=== PATIENT | female | born 1940 | race Caucasian/White ===

== ENCOUNTER 2019-06-08 00:12 | Inpatient (IN) ==
--- NOTE | 2019-06-08 00:46 | ERNOTE ---
Lower Extremity HPI - General Lower Extremities Pain: hip: left - hip fracture Time Seen by Provider: 06/08/19 00:45 Source: family, other - Dr. Newby from [facility] Exam Limitations: no limitations - Immun/Allergies/Home Medications Immunizations: IMMUNIZATION HX Immunizations Up to Date Yes History of Influenza Vaccine More Information Required Hx Pneumococcal Vaccination More Information Required Allergies/Adverse Reactions: Allergies Allergy/AdvReac Type Severity Reaction Status Date / Time No Known Allergies Allergy Unverified 06/08/19 01:26 Home Medications: HOME MEDICATIONS Acetaminophen [Tylenol] 650 mg PO Q4H PRN 06/08/19 [Last Taken Unknown] LORazepam [Ativan] 1 mg PO BID 06/08/19 [Last Taken Unknown] Meloxicam [Mobic] 15 mg PO DAILY 06/08/19 [Last Taken Unknown] Rosuvastatin Calcium [Crestor] 10 mg PO DAILY 06/08/19 [Last Taken Unknown] Sertraline HCl [Zoloft] 50 mg PO DAILY 06/08/19 [Last Taken Unknown] - History of Present Illness Narrative: Patient transferred here from [facility]. Patient fell early in the morning and was unable to get up throughout most the day. In the late evening her daughter sent somebody over to check on her and found that she had fallen and could not get up. She was taken by ambulance to [facility] where they found she has a left hip fracture and in rhabdomyolysis. They gave her 2 L of normal saline between the ER time and ambulance ride here. Patient is alert and oriented. Occurred: this morning Location of Incident: home Method of Injury: Reports: fell Reason for Fall: Reports: slipped Loss of Consciousness: Reports: no loss of consciousness Review of Systems - Review of Systems Constitutional: Absent: recent illness, fever Respiratory: Absent: shortness of breath Cardiology: Absent: chest pain Gastrointestinal/Abdominal: Absent: nausea, vomiting Genitourinary: Present: frequency - and incontinence Musculoskeletal: Present: joint pain - left hip Skin: Present: change in color - abrasions elbows and knees Neurological: Absent: numbness, tingling Hematologic/Lymphatic: Present: easy bruising. Absent: easy bleeding Medical History (Updated 06/08/19 @ 02:22 by Luís Leon DO) Anxiety Arthritis COPD (chronic obstructive pulmonary disease) Depression Hypercholesterolemia Macular degeneration Surgical History: Surgical History (Updated 06/08/19 @ 01:24 by Radha Gray RN) H/O bilateral oophorectomy Hx of cholecystectomy Social History: (Last Reviewed 06/08/19 @ 02:17 by Luís Leon DO) Tobacco: Smoking Status: Current every day smoker Physical Exam - Physical Exam General Appearance: Present: wd/wn, alert, no apparent distress Head Exam: Present: normal inspection, no evidence of injury Eye Exam: Normal inspection: bilateral, PERRL: bilateral, EOMI: bilateral Ears, Nose, Throat: Present: normal ENT inspection Neck: Present: normal inspection, nontender, supple, full range of motion Respiratory: Present: no respiratory distress, no accessory muscle use, chest nontender, lungs clear Cardiovascular/Chest: Present: regular rate, rhythm, systolic murmur - 2/6 Gastrointestinal/Abdominal: Present: normal bowel sounds, nontender, nondistended, soft Extremity Exam: Present: normal except - - Left hip, decreased range of motion, bony tenderness Neurological Exam: Present: alert, oriented, normal mood/affect, no motor/sensory deficits Skin Exam: Present: normal color, warm/dry Progress - Results and Orders Patient's Lab Results:: I have reviewed the patient's lab results. Results and Orders: Labs from [facility] show CPK of 2800+, UA shows 100 protein small amount of bilirubin and some white blood cells. - Vital Signs Patient's Vital Signs:: I have reviewed the patient's vital signs. - X-Ray X-Ray #1 X-Ray: hip X-ray Comments: X-rays from [facility] show a left femoral neck fracture. Right hip, knees and elbows bilateral show no other fractures. - Progress/Reassessment Progress Note-Subjective: 06/08/19 02:[address] Martinez and she agrees to accept the patient for admission. She asked for IV fluids to be reduced from the 200 we had running to 150 mils per hour Departure Clinical Impression: Hip fracture, left Qualifiers: Encounter type: initial encounter Fracture type: closed Qualified Code(s): S72.002A - Fracture of unspecified part of neck of left femur, initial encounter for closed fracture Rhabdomyolysis Qualifiers: Rhabdomyolysis type: traumatic Encounter type: initial encounter Qualified Code(s): T79.6XXA - Traumatic ischemia of muscle, initial encounter - Departure Disposition: Short Term Hospital Inpatient Condition: Good
[2019-06-08] MEDS ORDERED: NORMAL SALINE 1,000 ML IV ONE (01:04)
[2019-06-08] MEDS ORDERED: ceFAZolin SODIUM 1 GM VIAL IV PRN (06:00)
[2019-06-08] MEDS ORDERED: ROPIVACAINE HCL/PF 100 MG, EPINEPHrine 0.2 MG, KETOROLAC TROMETHAMINE 30 MG in NORMAL S... IJ PRN (06:00)
[2019-06-08] MEDS ORDERED: TRANEXAMIC ACID 1,000 MG in NORMAL SALINE 100 ML IV PRN (06:00)
[2019-06-08] MEDS ORDERED: ACETAMINOPHEN 325 MG TABLET PO PRN ×2 (08:05→08:10)
[2019-06-08] MEDS ORDERED: POLYVINYL ALCOHOL 150 DROP BTL EACHEYE PRN (08:12)
[2019-06-08 08:27] LABS: Hematocrit 37.4 % (37.0-47.0); Hemoglobin 12.6 gm/dL (12.5-16.0); Mean Cell Volume 94.9 fl (78-100); Mean Corpuscular Hgb Conc 33.7 g/dl (32-36); Platelet Count 129 K/mm3 (150-450); Red Blood Count 3.94 M/mm3 (4.2-5.4); White Blood Count 8.4 K/mm3 (4.0-10.5)
[2019-06-08 08:34] LABS: Prothrombin Time (Patient) 9.8 Seconds (9.1-10.7); Total Cells Counted 100
[2019-06-08 08:36] LABS: INR 0.99 INR (0.92-1.08)
[2019-06-08] MEDS ORDERED: chlordiazePOXIDE HCL 25 MG CAPSULE PO PRN (08:43)
[2019-06-08 08:44] LABS: Urine Bilirubin Negative (NEGATIVE); Urine Blood 50 /ul (NEGATIVE); Urine Ketone 5 mg/dL (NEGATIVE); Urine Nitrite Negative (NEGATIVE); Urine Protein 30 mg/dL (NEGATIVE); Urine Urobilinogen Normal (NORMAL)
[2019-06-08 08:48] LABS: Albumin * 2.7 gm/dl (3.4-5.0); Anion Gap 11.6 mmol/L (6.8-13.8); BUN/Creatinine Ratio 30.6 (9.0-21.6); Bilirubin, Total 0.7 mg/dL (0.0-1.1); Ca. Corrected For Albumin 8.6 mg/dL (8.4-10.2); Calcium * 7.9 mg/dL (7.9-10.9); Carbon Dioxide 25.9 mmol/L (24-32.6); Potassium 3.5 mmol/L (3.4-4.6); Total Protein 5.7 gm/dL (6.2-8.2)
[2019-06-08 08:50] LABS: Band 1 % (0-2.0); Lymphocyte 11 % (20-51); Monocyte 7 % (0-9); Neutrophil 81 % (42-75); Neutrophil # 6.8 K/mm3 (1.3-6.0); Platelet Estimate Normal (NORMAL); RBC Morphology Normal (NORMAL)
[2019-06-08 08:56] LABS: Urine Appearance Clear (CLEAR); Urine Bacteria TRACE; Urine Color Yellow
[2019-06-08] MEDS ORDERED: MELOXICAM 15 MG TABLET PO SCH (09:00)
[2019-06-08] MEDS: FAMOTIDINE 20 MG in DEXTROSE 5 % IN WATER 100 ML IV SCH ×4 (09:03→20:35)
[2019-06-08] MEDS: amLODIPine BESYLATE 5 MG TABLET PO SCH (09:04)
[2019-06-08] MEDS: NICOTINE 14 MG PATC TD SCH (09:04)
[2019-06-08] MEDS ORDERED: MORPHINE SULFATE 2 MG/ML DISP.SYRIN IV PRN ×2 (09:17→16:46)
--- NOTE | 2019-06-08 09:31 | HP ---
Chief Complaint - Chief Complaint Date of Service: 06/08/19 Time of Service: 09:02 Chief Complaint: I fell and have left hip pain History of Present Illness: 79-year-old female with past medical history of hypercholesterolemia, COPD, macular degeneration, osteoarthritis, anxiety disorder, depression, and alcoholism was evaluated in our ER due to left sided hip pain secondary to a fall that occurred yesterday in her home when she slipped and fell onto her left side. Patient has an extensive history of cigarette smoking as well as alcohol abuse and drinks up to 5 bourbons per day. She reports the last alcoholic drink being the evening before the fall but is unable to recall if being drunk caused her to fall. Patient lives alone and was not accompanied during the event so there were no witnesses to the fall and patient was immobile laying on the floor and unable to get up for multiple hours. When her daughter was unable to reach her mother for several hours she became alarmed enough to send the EMT to the home, who discovered the patient on the floor and took her to [facility] in [place]. ER labs conducted at that facility demonstrated significant rhabdomyolysis likely secondary to the multiple hours of being immobile on the floor and moderate renal injury. Patient is not a regular here at facility so we are unable to determine her baseline GFR or kidney function. She was also discovered to have elevated liver enzymes which is most likely related to her excessive drinking and multiple years of alcohol abuse. Patient denied any head injuries and bedside evaluation did not demonstrate any injuries to her head or cervical area. Medical History (Updated 06/08/19 @ 09:31 by Mckenna Martinez MD) Anxiety Arthritis COPD (chronic obstructive pulmonary disease) Depression Hypercholesterolemia Macular degeneration Surgical History: Surgical History (Updated 06/08/19 @ 01:24 by Radha Gray RN) H/O bilateral oophorectomy Hx of cholecystectomy Social History: (Last Reviewed 06/08/19 @ 03:15 by Shama Alfaro RN) Tobacco: Smoking Status: Current every day smoker Peds Patient Hx - Developmental: No Pertinent Hx Peds Patient Hx - Medical: No Pertinent Hx Peds Patient Hx - Cardiac/Respiratory: No Pertinent Hx Peds Patient Hx - Surgical: No Surgical History Patient History - Cancer: No Hx of Cancer Review Of Systems (GEN) - Review of Systems Generalized/Overall Review: Present: No Symptoms Reported EENTM: Present: No Symptoms Reported Respiratory: Present: No Symptoms Reported Cardiac: Present: No Symptoms Reported Abdominal: Present: No Symptoms Reported Genitourinary: Present: No Symptoms Reported Musculoskeletal: Present: Joint Pain - Left hip pain. Neurological: Present: No Symptoms Reported Skin: Present: No Symptoms Reported Endocrine: Present: No Symptoms Reported Immunizations: IMMUNIZATION HX Immunizations Up to Date Yes History of Influenza Vaccine More Information Required Hx Pneumococcal Vaccination More Information Required Allergies/Adverse Reactions: Allergies Allergy/AdvReac Type Severity Reaction Status Date / Time No Known Allergies Allergy Unverified 06/08/19 01:26 Home Medications: HOME MEDICATIONS Acetaminophen [Tylenol] 650 mg PO Q4H PRN 06/08/19 [Last Taken Unknown] LORazepam [Ativan] 1 mg PO BID 06/08/19 [Last Taken Unknown] Meloxicam [Mobic] 15 mg PO DAILY 06/08/19 [Last Taken Unknown] Rosuvastatin Calcium [Crestor] 10 mg PO DAILY 06/08/19 [Last Taken Unknown] Sertraline HCl [Zoloft] 50 mg PO DAILY 06/08/19 [Last Taken Unknown] Exam - Exam Vital Signs: Vital Signs - Last Taken Temp 36.8 C 06/08/19 06:27 Pulse 76 06/08/19 06:27 Resp 20 06/08/19 06:27 BP 157/85 H 06/08/19 06:27 Pulse Ox 97 06/08/19 06:27 Constitutional: Present: Alert, Oriented x3, Cooperative, Well developed, Well nourished, No distress ENT Exam: Present: normal ENT inspection, hearing grossly normal, pharynx normal, TMs normal Eye Exam: bilateral eye: normal inspection, PERRL, EOMI Neck: Present: non-tender, full range of motion, supple, normal inspection, trachea midline Back Exam: Present: normal inspection, no CVA tenderness, no vertebral tenderness Breasts: Present: Exam deferred Respiratory: Present: chest non-tender, lungs clear, normal breath sounds, no respiratory distress, no accessory muscle use Cardiovascular/Chest: Present: normal peripheral pulses, regular rate, rhythm, no chest tenderness, no edema, no gallop, no JVD, no murmur, no rub Peripheral Pulses: carotid (R): 3+, carotid (L): 3+, femoral (R): 3+, femoral (L): 3+, dorsalis-pedis (R): 3+, dorsalis-pedis (L): 3+ Abdomen: Present: Normal bowel sounds, soft, nontender, nondistended, no rebound tenderness, no hepatospenomegaly, no masses /Rectal: Present: Exam deferred Extremity: Present: no pedal edema, no calf tenderness, normal capillary refill, leg pain, other - Left lower extremity shortened and externally rotated, there are multiple hematomas on both knees Skin Exam: Present: normal color, warm/dry, no cyanosis Lymphatic: Present: no adenopathy Neurologic: Present: 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 as tested, normal cerebellar test, no motor/sensory deficits, alert, normal mood/affect, oriented x 3 Appearance: Present: appropriate appearance Eye contact: Present: cooperative, good eye contact, normal speech Thoughts: Present: normal thought pattern, no apparent hallucination Diagnostic Studies: Abnormal Lab Results 06/08/19 06/08/19 06/08/19 Range/Units 08:20 08:20 08:20 RBC 3.94 L (4.2-5.4) M/mm3 MCH 32.0 H (27-31) pg Plt Count 129 L (150-450) K/mm3 Neutrophils % (Manual) 81 H (42-75) % Lymphocytes % (Manual) 11 L (20-51) % Neutrophils # (Manual) 6.8 H (1.3-6.0) K/mm3 Lymphocytes # (Manual) 0.9 L (1.5-3.5) k/mm3 Chloride 108 H (97-106) mmol/L BUN/Creatinine Ratio 30.6 H (9.0-21.6) Random Glucose 116 H (70-110) mg/dL AST 70 H (0-48) U/L Creatine Kinase 1201 H (0-259) U/L Total Protein 5.7 L (6.2-8.2) gm/dL Albumin 2.7 L (3.4-5.0) gm/dl Urine Protein 30 H (NEGATIVE) mg/dL Urine Blood 50 H (NEGATIVE) /ul Urine RBC 10-25 H (0-5) /hpf Urine WBC 5-10 H (0-5) /hpf Laboratory Results WBC 8.4 K/mm3 (4.0-10.5) 06/08/19 08:20 RBC 3.94 M/mm3 (4.2-5.4) L 06/08/19 08:20 Hgb 12.6 gm/dL (12.5-16.0) 06/08/19 08:20 Hct 37.4 % (37.0-47.0) 06/08/19 08:20 MCV 94.9 fl (78-100) 06/08/19 08:20 MCH 32.0 pg (27-31) H 06/08/19 08:20 MCHC 33.7 g/dl (32-36) 06/08/19 08:20 RDW 14.0 % (11.5-14.0) 06/08/19 08:20 Plt Count 129 K/mm3 (150-450) L 06/08/19 08:20 81 % (42-75) H 06/08/19 08:20 Band Neuts % (Manual) 1 % (0-2.0) 06/08/19 08:20 11 % (20-51) L 06/08/19 08:20 7 % (0-9) 06/08/19 08:20 6.8 K/mm3 (1.3-6.0) H 06/08/19 08:20 0.9 k/mm3 (1.5-3.5) L 06/08/19 08:20 0.6 k/mm3 (0.0-1.0) 06/08/19 08:20 Normal (NORMAL) 06/08/19 08:20 RBC Morphology Normal (NORMAL) 06/08/19 08:20 PT 9.8 Seconds (9.1-10.7) 06/08/19 08:20 INR (Anticoag Therapy) 0.99 INR (0.92-1.08) 06/08/19 08:20 Sodium 142 mmol/L (132-142) 06/08/19 08:20 142 mmol/L (130-142) 06/08/19 08:20 Potassium 3.5 mmol/L (3.4-4.6) 06/08/19 08:20 Chloride 108 mmol/L (97-106) H 06/08/19 08:20 Carbon Dioxide 25.9 mmol/L (24-32.6) 06/08/19 08:20 11.6 mmol/L (6.8-13.8) 06/08/19 08:20 BUN 22 mg/dL (3-23) 06/08/19 08:20 0.72 mg/dL (0.4-1.4) 06/08/19 08:20 Est GFR (Non-Af Amer) 83 mL/min (60-130) 06/08/19 08:20 30.6 (9.0-21.6) H 06/08/19 08:20 116 mg/dL (70-110) H 06/08/19 08:20 Calcium 7.9 mg/dL (7.9-10.9) 06/08/19 08:20 Calcium Adj for Albumin 8.6 mg/dL (8.4-10.2) 06/08/19 08:20 0.7 mg/dL (0.0-1.1) 06/08/19 08:20 AST 70 U/L (0-48) H 06/08/19 08:20 ALT 47 U/L (19-67) 06/08/19 08:20 54 U/L (50-170) 06/08/19 08:20 1201 U/L (0-259) H 06/08/19 08:20 5.7 gm/dL (6.2-8.2) L 06/08/19 08:20 2.7 gm/dl (3.4-5.0) L 06/08/19 08:20 Yellow 06/08/19 08:20 Clear (CLEAR) 06/08/19 08:20 6.0 pH (5.0-7.0) 06/08/19 08:20 Ur Specific [place] 1.020 SP.GR. (1.005-1.010) 06/08/19 08:20 30 mg/dL (NEGATIVE) H 06/08/19 08:20 Negative mg/dL (NEGATIVE) 06/08/19 08:20 5 mg/dL (NEGATIVE) 06/08/19 08:20 50 /ul (NEGATIVE) H 06/08/19 08:20 Negative (NEGATIVE) 06/08/19 08:20 Negative mg/dl (NEGATIVE) 06/08/19 08:20 Prot Sulfosalicylic Acd 1+ mg/dL (0) 06/08/19 08:20 Normal EU/dl (NORMAL) 06/08/19 08:20 Ur Leukocyte Esterase Negative /ul (NEGATIVE) 06/08/19 08:20 10-25 /hpf (0-5) H 06/08/19 08:20 5-10 /hpf (0-5) H 06/08/19 08:20 Ur Epithelial Cells None seen /hpf (0-5) 06/08/19 08:20 Trace (NONE) 06/08/19 08:20 Assessment/Plan - Narrative Narrative: Patient was evaluated and medical chart was reviewed and decision to admit to inpatient for management of a left femoral neck fracture was made. Orthopedic s samantha was consulted and accepted the case and plans on possible surgical intervention to repair the left femoral neck fracture. Follow-up labs were ordered to reevaluate for acute rhabdomyolysis, moderate dehydration, acute kidney injury, and electrolyte imbalance. Results demonstrate marked improvement of kidney function with a GFR within normal range, there are no electrolyte imbalances, coagulation factors all within normal range, and elevated liver enzymes have also improved, urinalysis is negative for infection but demonstrate presence of protein and white blood cells likely secondary to dehydration, creatinine kinase levels have also decreased remarkably after IV hydration. We will continue IV hydration to treat rhabdomyolysis and to optimize renal function. Patient's daily NSAID have been placed on hold and pain medications were ordered. Preop orders chest x-ray, EKG, and anticoagulation factors were placed, we will follow-up with results. Precautions for alcohol withdrawals were taken, benzodiazepines for seizure prophylaxis, multivitamin with folic acid, and thiamine were ordered to protect patient from consequences of her alcoholism during hospital stay. Nicotine patches were also ordered to treat nicotine withdrawal. Chest x-ray is negative for any acute findings and only demonstrate chronic disease specifically COPD which patient has a history of. Given these findings, patient has been cleared for surgical intervention by the orthopedic surgeon possibly this afternoon. - Assessment/Plan (1) Rhabdomyolysis Problem: Acute Qualifiers: Rhabdomyolysis type: traumatic Encounter type: initial encounter Qualified Code(s): T79.6XXA - Traumatic ischemia of muscle, initial encounter (2) Moderate dehydration Problem: Acute (3) JOSE L (acute kidney injury) Problem: Acute (4) Alcohol withdrawal Problem: Acute (5) Alcoholism /alcohol abuse Problem: Chronic (6) Current every day smoker Problem: Chronic (7) Nicotine dependence Problem: Chronic (8) Fracture of femoral neck, left Problem: Acute
[2019-06-08] MEDS: LORazepam 1 MG TABLET PO SCH ×2 (09:56→20:42)
[2019-06-08] MEDS: MULTIVITAMIN/IRON/FOLIC ACID 1 TAB TABLET PO SCH (09:56)
[2019-06-08] MEDS: SERTRALINE HCL 50 MG TABLET PO SCH (09:57)
[2019-06-08] MEDS: THIAMINE HCL 100 MG TABLET PO SCH (09:57)
[2019-06-08] MEDS: DOCUSATE SODIUM 100 MG CAPSULE PO SCH (09:57)
[2019-06-08] MEDS: NORMAL SALINE 2,000 ML IV ONE ×3 (09:58→16:30)
--- NOTE | 2019-06-08 11:30 | ANES ---
Anesthesia Pre Procedure Eval Vitals/Labs: Last Vital Signs Temp 36.8 C 06/08/19 10:00 Pulse 73 06/08/19 10:00 Resp 20 06/08/19 10:00 BP 164/86 H 06/08/19 10:00 Pulse Ox 100 06/08/19 10:00 HOME MEDICATIONS Acetaminophen [Tylenol] 650 mg PO Q4H PRN 06/08/19 [Last Taken Unknown] LORazepam [Ativan] 1 mg PO BID 06/08/19 [Last Taken Unknown] Meloxicam [Mobic] 15 mg PO DAILY 06/08/19 [Last Taken Unknown] Rosuvastatin Calcium [Crestor] 10 mg PO DAILY 06/08/19 [Last Taken Unknown] Sertraline HCl [Zoloft] 50 mg PO DAILY 06/08/19 [Last Taken Unknown] Allergies/Adverse Reactions: Allergies Allergy/AdvReac Type Severity Reaction Status Date / Time No Known Allergies Allergy Unverified 06/08/19 01:26 - Planned Procedure Planned Procedure: LT HIP FX RABDOMYOLYSIS Medication List Reviewed:: Yes Allergies Verified: Yes Medical History (Updated 06/08/19 @ 11:29 by Roman Multani CRNA) Anxiety Arthritis COPD (chronic obstructive pulmonary disease) Depression Hypercholesterolemia Macular degeneration Thrombocytopenia Surgical History (Updated 06/08/19 @ 01:24 by Radha Gray RN) H/O bilateral oophorectomy Hx of cholecystectomy - Family Anesthesia History Family History:: no untoward family reactions to anesthesia, no familial bleeding tendencies, no family history of clotting disorders, no family history of premature - Airway/Neck/Teeth Within Normal Limits:: Yes Teeth Condition: intact Mallampatti Score: 2 Thyromental (T-M) distance: > 6 cm Mandibulo Hyoid distance: > 3 cm - Respiratory Respiratory Physical: decreased breath sounds Smoking Status: Current every day smoker Discussed smoking cessation including day of surgery: Yes Sleep Apnea currently treated: No Sleep Apnea by current assessment: No Discussed Risks/Treatment of ROSEMARY: No - Cardiovascular Tolerate Activity: Fair Heart Sounds: S1 & S2, Regular - Anesthesia Assessment and Plan ASA Class: PS, III Anesthesia Type Plan: General ET
--- NOTE | 2019-06-08 13:42 | CONS ---
[facility] - [facility] Date of Service: 06/08/19 Narrative: Patient was brought to the ER after a fall yesterday on 06/07/2019. X-rays were performed due to patient's significant left hip pain they revealed a displaced left femur neck fracture. Patient was admitted to the hospital for further treatment of this injury. Note patient has an extensive medical history and was seen by a medicine provider. Today patient is resting comfortably in bed. She notes her pain is well controlled. She states she wishes to proceed with surgical intervention. Patient notes she has significant left hip pain that is worse with movement better with rest. Source: patient - History of Present Illness Allergies/Adverse Reactions: Allergies No Known Allergies Allergy (Unverified 06/08/19 01:26) Home Medications: Home Medications Medication Instructions Recorded Last Taken Acetaminophen [Tylenol] 650 mg PO Q4H PRN 06/08/19 Unknown LORazepam [Ativan] 1 mg PO BID 06/08/19 Unknown Meloxicam [Mobic] 15 mg PO DAILY 06/08/19 Unknown Rosuvastatin Calcium [Crestor] 10 mg PO DAILY 06/08/19 Unknown Sertraline HCl [Zoloft] 50 mg PO DAILY 06/08/19 Unknown Medications - Medications Current Medications: Current Medications Amlodipine Besylate (Norvasc) 5 mg PO DAILY COUNT INCLUDES THE [facility] Stop: 07/08/19 09:01 Last Admin: 06/08/19 09:04 Dose: 5 mg Documented by: Artificial Tears (Artificial Tears) 1 drop EACHEYE Q1H PRN PRN Reason: Dry Eye(s) Stop: 07/08/19 08:13 Last Admin: 06/08/19 09:06 Dose: 1 drop Documented by: Docusate Sodium (Colace) 100 mg PO DAILY COUNT INCLUDES THE [facility] Stop: 07/08/19 09:01 Last Admin: 06/08/19 09:57 Dose: Not Given Documented by: Famotidine 20 mg/ Dextrose/ (Water) 102 mls @ 400 mls/hr IV Q12H COUNT INCLUDES THE [facility] Stop: 07/08/19 08:16 Last Admin: 06/08/19 09:03 Dose: 400 mls/hr Documented by: Sodium Chloride (Sodium Chloride 0.9%) 2,000 mls @ 200 mls/hr IV .Q10H ONE Stop: 06/08/19 19:12 Last Admin: 06/08/19 09:58 Dose: 200 mls/hr Documented by: Lorazepam (Ativan) 1 mg PO BID COUNT INCLUDES THE [facility] Stop: 07/08/19 09:01 Last Admin: 06/08/19 09:56 Dose: Not Given Documented by: Morphine Sulfate (Morphine Sulfate) 2 mg IV Q2H PRN PRN Reason: Severe Pain (pain scale 7-10) Stop: 07/08/19 09:18 Last Admin: 06/08/19 10:05 Dose: 2 mg Documented by: Multivitamins/Minerals (Certagen) 1 tab PO DAILY COUNT INCLUDES THE [facility] Stop: 07/08/19 09:01 Last Admin: 06/08/19 09:56 Dose: Not Given Documented by: Nicotine (Nicoderm) 14 mg TD Q24H COUNT INCLUDES THE [facility] Stop: 07/08/19 08:31 Last Admin: 06/08/19 09:04 Dose: 14 mg Documented by: Sertraline HCl (Zoloft) 50 mg PO DAILY COUNT INCLUDES THE [facility] Stop: 07/08/19 09:01 Last Admin: 06/08/19 09:57 Dose: Not Given Documented by: Thiamine HCl (Vitamin B-1) 100 mg PO DAILY COUNT INCLUDES THE [facility] Stop: 07/08/19 09:01 Last Admin: 06/08/19 09:57 Dose: Not Given Documented by: Physical Examination - Exam Vital Signs: Vital Signs - Last Taken Temp 36.8 C 06/08/19 10:00 Pulse 73 06/08/19 10:00 Resp 20 06/08/19 10:00 BP 164/86 H 06/08/19 10:00 Pulse Ox 100 06/08/19 10:00 O2 Oxygen Delivery Method Room Air Constitutional: Present: Alert, Cooperative, No distress Respiratory: Present: no respiratory distress Extremity: Present: other - LLE--> sensation intact light touch, distal capillary refill brisk, no obvious wounds, leg is slightly externally rotated, 5/5 plantar flexion dorsiflexion of the foot, diffuse tenderness about the left hip Eye contact: Present: cooperative - Results and Findings: Lab/Microbiology results last 24 hrs: Abnormal/Pending Laboratory Last 24 HRS 06/08/19 06/08/19 06/08/19 08:20 08:20 08:20 RBC 3.94 L MCH 32.0 H Plt Count 129 L Neutrophils % (Manual) 81 H Lymphocytes % (Manual) 11 L Neutrophils # (Manual) 6.8 H Lymphocytes # (Manual) 0.9 L Chloride 108 H BUN/Creatinine Ratio 30.6 H Random Glucose 116 H AST 70 H Creatine Kinase 1201 H Total Protein 5.7 L Albumin 2.7 L Urine Protein 30 H Urine Blood 50 H Urine RBC 10-25 H Urine WBC 5-10 H - Assessments/Findings (1) Fracture of femoral neck, left Problem: Acute Plan - Plan Plan: - 79 y/o female admitted with a left femoral neck fracture status post a fall at home yesterday on 06/07/2019. Discussed with patient in detail conservative or surgical intervention including the risk first benefits including but not limited to malunion versus nonunion fracture healing cardiac and stroke risk of surgery, DVT, infection, bleeding, continued pain, implant/hardware failure. Patient wishes to proceed with surgical intervention. Patient was consented for a left total hip arthroplasty versus hemiarthroplasty. Patient's questions were answered at this time. Patient will undergo surgery on 06/08/[address] Machuca. Patient will remain in the hospital after surgical intervention to monitor for postoperative complications, pain control, return to weightbearing status, return to p.o. diet, PT/OT. Patient agreed with this treatment plan.
[2019-06-08] MEDS ORDERED: VANCOMYCIN HCL 1 GM VIAL TP ONE ×2 (16:18→16:30)
[2019-06-08] MEDS ORDERED: ACETAMINOPHEN 500 MG TABLET PO PRN (16:46)
[2019-06-08] MEDS ORDERED: ONDANSETRON HCL/PF 2 MG/ML VIAL IV PRN (16:46)
[2019-06-08] MEDS ORDERED: MAGNESIUM HYDROXIDE 30 ML UDC PO PRN (16:46)
[2019-06-08] MEDS ORDERED: MAG HYDROX/ALUMINUM HYD/SIMETH 30 ML UDC PO PRN (16:46)
[2019-06-08] MEDS ORDERED: NORMAL SALINE 1,000 ML IV PRN (16:48)
--- NOTE | 2019-06-08 16:57 | OR ---
Operative Report - Dictated Report Narrative: Date: 06/08/2019 Preoperative diagnosis: Closed, displaced left femoral neck fracture. Postoperative diagnosis: Closed, displaced left femoral neck fracture Procedure: Left hip uncemented annette-arthroplasty. Surgeon: Carlos Machuca M.D. Pinked Edge Sewing Machine Operator: Sim Lu PA-C provided a set of essential, skilled, educated hands that assisted in positioning, transfer, retraction, manipulation, irrigation, closure of wounds, and placement of dressings all of which could not be provided by the available surgical crew. Anesthesia: Spinal. Complications: None Specimens: Femoral head for pathology Estimated blood loss: 200 milliliters. Retained implants: Depuy Corail size 13 standard femoral stem. Size 48 millimeter ouside diameter self-centering bipolar head with + 1.5 millimeter cobalt chromium 28 mm femoral head. Indications: Keyonna is a 79-year-old female who fell in her home yesterday morning and was not found until 4:00 in the afternoon. She was taken to an outside emergency department where plain films revealed a displaced left femoral neck fracture. She was transferred to our emergency department for further orthopedic care. Upon work-up in our ER she was noted to have rhabdomyolysis in addition to her femoral neck fracture. I counseled her on treatment options including nonoperative management with protected weightbearing and pain control versus hemiarthroplasty. Given her age, health, and activity level, I recommended hemiarthroplasty. After rehydration with IV fluids, she was deemed stable for surgery by the internal medicine team. The risks and benefits were discussed with the patient as well as any power of defense attorney. Patient wished to proceed with surgical treatment. The risks, benefits, and alternatives discussed were , blood clots, bleeding, infection, nerve/tendon blood vessel/ injury, malposition of components, dislocation and/or instability of joint, intraoperative fracture, postoperative limited range of motion, persistent pain, failure of components, and need for additional procedures. Patient wished to proceed. Consent was obtained after answering all questions. Procedure: After marking the correct extremity on the floor, the patient was taken to the operating room. A timeout was performed. IV antibiotics consisting of 1 g of Ancef were administered prior to the procedure. A spinal anesthetic was induced by anesthesia. The patient was then transitioned to a lateral position on a well-padded pegboard and an axillary roll was placed. The head was in neutral position. The non-operative down leg was well-padded with SCD and ADELAIDE hose in place. The arms were supported and padded to protect from a ny undue pressure on the bony prominences and nerves. Well-padded anterior and posterior pelvic and chest posts were secured in order to maintain a stable position of the pelvis. This was placed so that the pelvis was perpendicular to the floor. The body was in line with the pelvis. Once it was felt that we had protected all the bony prominences and the patient was well secured with a safety belt as well, the leg was pre-scrubbed with alcohol, prepped and draped in a standard sterile fashion. A standard anterior lateral hip incision was marked out over the greater trochanter. Ioban drapes were then placed. The skin incision was then made. Sharp dissection with a scalpel utilizing cautery for hemostasis was carried out down to the gluteus and iliotibial band fascia. This was split in line with the skin incision. The greater trochanter bursa was excised. The anterior and posterior margins of the abductor tendon were identified. The anterior 1/3 of the tendon was tagged and reflected off the greater trochanter leaving a sleeve of tendon for repair at the completion of the case. This exposed the underlying hip joint capsule. An inverted T-type capsulotomy was made extending this up to the brim of the acetabulum. We encountered a hematoma at this point confirming an acute fracture as well as noted displacement of the femoral neck fracture. Using Ugo retractors to assist with elevation of the soft tissues off the anterior, superior, and inferior aspects of the femoral neck, the hip was then placed in a figure 4 position and the femoral neck cleanup cut was then made. With the leg in an externally rotated and adducted position, the cutting flag was utilized in order to pratima for a standard femoral neck cut approximately a fingerbreadth above the level of the lesser trochanter. This was done while protecting the surrounding soft tissues with Ugo retractors. The femoral head was then removed and sized for guidance on the size of the bipolar head. It was noted that there was no significant loss of articular cartilage on both the femoral head and weightbearing portions of the acetabulum. We then returned the leg to the table and turned our attention to the acetabulum. While protecting the surrounding soft tissues, the labrum and remaining tissue in the fovea were excised using a scalpel and cautery. This was then protected with a sponge while we returned our attention to the femur. With the leg in a figure 4 position utilizing Ugo retractors for soft tissue protection, a box cutting osteotome, followed by Klaudia thomas, followed by se ying impaction broaches were utilized in order to prepare the femur. It was found that a size 13 broach gave good axial and rotational stability. The proximal femur was visualized to ensure that there were no signs of fracture. A series of heads were trialed. It was found that a 48 +1.5mm bipolar femoral head gave good overall stability. There was minimal longitudinal instability. With the leg in the position of sleep the femoral head was well covered. Hip range of motion was able to reach full extension and external rotation to greater than 75 degrees prior to impingement along the posterior acetabulum. The hip was able to be flexed to greater than 90 degrees with internal rotation greater than 60 degrees prior to anterior impingement. The limb lengths were near equal based on comparison to the contralateral side. At this point it was felt these were the appropriately sized femoral components. The trial implants were removed. The final stem was then impacted into place in the appropriate version. The final femoral bipolar head was then impacted in the place. The hip was then reduced and seated completely. The capsule was repaired with interrupted #1 Vicryl. The abductor tendon was repaired utilizing #5 Ethibond. This was oversewn with #1 Vicryl. The fascia was closed with running #1 barbed PDS suture. The wounds were thoroughly irrigated as we closed in layers. The deep fat layers were closed with running 0 barbed PDS suture and the dermis was approximated with interrupted 3-0 Vicryl. The skin was closed with janes. All sponge, needle, blade, and instrument counts were correct prior to closing the wounds. Sterile dressings consisting of Xeroform, 4 x 4's, ABD, and tape were applied. The patient was awoken and transferred to her hospital bed and then to the postanesthesia care unit in stable condition. Postoperative condition: The plan is to return to the medical/surgical inpatient floor postoperatively. Postoperatively 24 hours of IV antibiotics, pain control, physical therapy, occupational therapy, and medical comanagement will be utilized. Patient will be weightbearing as tolerated with anterior hip precautions. Postoperative films will be obtained in the recovery room.
--- NOTE | 2019-06-08 17:08 | ANES ---
Post Anesthesia Discharge - Transfer of Care Transfer of Care handoff given to nurse: Yes - Discharge from PACU Discharge from PACU when meets criteria: Yes - Comfortable on admission.
--- NOTE | 2019-06-08 17:43 | ANES ---
Post Anesthesia Assessment - Vital Signs Vitals: Last Vital Signs Temp 37.8 C 06/08/19 17:30 Pulse 75 06/08/19 17:30 Resp 12 06/08/19 17:30 BP 150/87 H 06/08/19 17:30 Pulse Ox 98 06/08/19 17:30 Airway Patency: Normal - Mental Status Level Of Consciousness: Awake, Alert, Appropriate - Pain Level Pain Score: 0 - N/V Assessment Nausea/Vomiting Presence: None Dehydration:: No
[2019-06-08] MEDS: oxyCODONE HCL/ACETAMINOPHEN 1 TAB TABLET PO PRN (19:04)
[2019-06-08] MEDS: SENNOSIDES/DOCUSATE SODIUM 1 TAB TABLET PO SCH (20:41)
[2019-06-08] MEDS: ROSUVASTATIN CALCIUM 10 MG TABLET PO SCH (20:41)
[2019-06-08] MEDS: ceFAZolin SODIUM 1 GM in DEXTROSE 5 % IN WATER 100 ML IV SCH ×2 (21:13)
[2019-06-09] MEDS: ceFAZolin SODIUM 1 GM in DEXTROSE 5 % IN WATER 100 ML IV SCH ×4 (02:06→09:39)
[2019-06-09] MEDS: oxyCODONE HCL/ACETAMINOPHEN 1 TAB TABLET PO PRN ×5 (02:42→23:49)
[2019-06-09 05:43] LABS: Hematocrit 34.1 % (37.0-47.0); Hemoglobin 11.5 gm/dL (12.5-16.0); Mean Cell Volume 96.6 fl (78-100); Mean Corpuscular Hemoglobin 32.6 pg (27-31); Mean Corpuscular Hgb Conc 33.7 g/dl (32-36); Mean Platelet Volume 9.9 fl (8-12.5); Platelet Count 125 K/mm3 (150-450); Red Blood Count 3.53 M/mm3 (4.2-5.4); Red Cell Distribution Width 13.9 % (11.5-14.0); White Blood Count 6.7 K/mm3 (4.0-10.5)
[2019-06-09 06:12] LABS: Anion Gap 11.8 mmol/L (6.8-13.8); BUN/Creatinine Ratio 15.7 (9.0-21.6); Carbon Dioxide 25.6 mmol/L (24-32.6); Estimated Creat Clear 60.6; Potassium 3.4 mmol/L (3.4-4.6)
[2019-06-09] MEDS: amLODIPine BESYLATE 5 MG TABLET PO SCH (08:50)
[2019-06-09] MEDS: SERTRALINE HCL 50 MG TABLET PO SCH (08:50)
[2019-06-09] MEDS: NICOTINE 14 MG PATC TD SCH (08:50)
[2019-06-09] MEDS: DOCUSATE SODIUM 100 MG CAPSULE PO SCH (08:50)
[2019-06-09] MEDS: MULTIVITAMIN/IRON/FOLIC ACID 1 TAB TABLET PO SCH (08:50)
[2019-06-09] MEDS: THIAMINE HCL 100 MG TABLET PO SCH (08:50)
[2019-06-09] MEDS: LORazepam 1 MG TABLET PO SCH ×2 (08:53→20:26)
[2019-06-09] MEDS: FAMOTIDINE 20 MG in DEXTROSE 5 % IN WATER 100 ML IV SCH ×2 (09:18)
--- NOTE | 2019-06-09 10:07 | PN ---
Subjective - Date and Time Seen Date: 06/09/19 Time: 09:53 Subjective Narrative: My pain is controlled Objective Objective Narrative: 79-year-old female status post left hemiarthroplasty to repair left femoral neck fracture day #1 was evaluated at bedside and was found to be afebrile and no acute distress. Patient underwent a successful and uneventful surgical procedure to repair her fracture, no adverse events were reported and she tolerated the procedure well. Currently patient's pain is being managed by analgesics and she reports adequate control or any other major symptoms. The orthopedic surgeon has ordered an hospital physical therapy and occupational therapy to start the rehab process, will monitor progress. In the meantime we will monitor daily CBC and CMP to evaluate pulse operative hemoglobin levels and electrolytes as well as renal function. Patient is being treated with IV hydration for rhabdomyolysis, which has shown improvement since admission. We will continue to monitor closely. In the meantime vocational case manager are arranging admission to a rehab facility upon discharge, will follow up with acceptance of the patient to a facility. - Review of Systems Generalized/Overall Review: Reports: No Symptoms Reported EENTM: Reports: No Symptoms Reported Respiratory: Reports: No Symptoms Reported Cardiac: Reports: No Symptoms Reported Abdominal: Reports: No Symptoms Reported Genitourinary Symptoms: Reports: No Symptoms Reported Musculoskeletal Complaints: Reports: Joint Pain - Left hip pain and discomfort Neurological: Reports: No Symptoms Reported Skin: Reports: No Symptoms Reported Endocrine: Reports: No Symptoms Reported - Vitals Vitals: Last Vital Signs Temp 36.6 C 06/09/19 07:15 Pulse 65 06/09/19 08:50 Resp 15 06/09/19 07:15 BP 131/75 06/09/19 08:50 Pulse Ox 94 06/09/19 07:15 - Abnormal Lab Findings Abnormal Lab Findings: Abnormal Lab Results 06/09/19 06/09/19 Range/Units 05:30 05:30 RBC 3.53 L (4.2-5.4) M/mm3 Hgb 11.5 L (12.5-16.0) gm/dL Hct 34.1 L (37.0-47.0) % MCH 32.6 H (27-31) pg Plt Count 125 L (150-450) K/mm3 Chloride 107 H (97-106) mmol/L Creatine Kinase 1124 H (0-259) U/L - Exam Constitutional: Present: Alert, Oriented x3, Cooperative, Well developed, Well nourished, No distress ENT Exam: Present: normal ENT inspection, hearing grossly normal, pharynx normal, TMs normal Neck: Present: non-tender, full range of motion, supple, normal inspection, trachea midline Breasts: Present: Exam deferred Respiratory: Present: chest non-tender, lungs clear, normal breath sounds, no respiratory distress, no accessory muscle use Cardiovascular/Chest: Present: normal peripheral pulses, regular rate, rhythm, no chest tenderness, no edema, no gallop, no JVD, no murmur, no rub Abdomen: Present: Normal bowel sounds, soft, nontender, nondistended, no rebound tenderness, no hepatospenomegaly, no masses /Rectal: Present: Exam deferred Extremity: Present: no pedal edema, no calf tenderness, normal capillary refill, other - Left hip covered by dry clean bandages and dressings no signs of surrounding erythema or signs of infection Skin Exam: Present: normal color, warm/dry, no cyanosis Lymphatic: Present: no adenopathy Neurologic: Present: logging rafter laborer II-XII nml as tested, normal cerebellar test, no motor/sensory deficits, alert, normal mood/affect, oriented x 3 Appearance: Present: appropriate appearance Eye contact: Present: cooperative, good eye contact, normal speech Thoughts: Present: normal thought pattern, no apparent hallucination Cauti Physician Documentation - Urinary Catheter Management Urethral (Zavala) Urethral Indwelling: Yes Date of Insertion: 06/07/19 Date of Removal: 06/09/19 Time of Removal: 07:25 Assessment/Plan Plan Narrative: We will continue to monitor patient during her postop period. She will continue to undergo physical therapy and occupational therapy while in our facility, discharge planning is underway for discharge to a rehab facility will wait for acceptance and authorization to a specific facility facility. In the meantime we will continue manage her rhabdomyolysis with IV hydration and follow-up labs. Standing orders of pain medications have been placed for adequate pain control. No alcohol withdrawal seizures have been reported, we will continue to watch patient's for any signs or symptoms of alcohol withdrawal. We will follow-up with further recommendations from the orthopedic team. - Problems/Diagnosis (1) Rhabdomyolysis Problem: Acute Qualifiers: Rhabdomyolysis type: traumatic Encounter type: initial encounter Qualified Code(s): T79.6XXA - Traumatic ischemia of muscle, initial encounter (2) Moderate dehydration Problem: Resolved (3) JOSE L (acute kidney injury) Problem: Acute (4) Alcohol withdrawal Problem: Acute (5) Alcoholism /alcohol abuse Problem: Chronic (6) Current every day smoker Problem: Chronic (7) Nicotine dependence Problem: Chronic (8) Fracture of femoral neck, left Problem: Acute (9) History of hemiarthroplasty of left hip Problem: Acute
--- NOTE | 2019-06-09 13:54 | PN ---
Subjective - Date and Time Seen Date: 06/09/19 Time: 07:30 Subjective Narrative: Patient reports she is feeling well postoperatively. She notes her pain is well controlled. She does note she has diffuse mild pain about her left hip. Patient notes that she has no other significant complaints at this time. Patient reports no acute events overnight. Objective - Vitals Vitals: Last Vital Signs Temp 36.2 C 06/09/19 12:00 Pulse 63 06/09/19 12:00 Resp 18 06/09/19 12:00 BP 143/80 06/09/19 12:00 Pulse Ox 97 06/09/19 12:00 - Abnormal Lab Findings Abnormal Lab Findings: Abnormal Lab Results 06/09/19 06/09/19 Range/Units 05:30 05:30 RBC 3.53 L (4.2-5.4) M/mm3 Hgb 11.5 L (12.5-16.0) gm/dL Hct 34.1 L (37.0-47.0) % MCH 32.6 H (27-31) pg Plt Count 125 L (150-450) K/mm3 Chloride 107 H (97-106) mmol/L Creatine Kinase 1124 H (0-259) U/L - Exam Constitutional: Present: Alert, Cooperative, No distress Respiratory: Present: no respiratory distress Extremity: Present: other - LLE--> sensation intact light touch, distal capillary refill brisk, 5/5 knee flexion/extension, diffuse tenderness about left hip, bandages clean/dry/intact, no significant drainage at this time Eye contact: Present: cooperative Thoughts: Present: normal thought pattern Cauti Physician Documentation - Urinary Catheter Management Urethral (Zavala) Urethral Indwelling: Yes Date of Insertion: 06/07/19 Date of Removal: 06/09/19 Time of Removal: 07:25 Assessment/Plan Plan Narrative: -79 y/o female postop day 1 status post left hip hemiarthroplasty status post a left femoral neck fracture due to a fall -Weightbearing as tolerated, anterior precautions -P.o. diet as tolerate -P.o. pain medication PRN -PT/OT progress as tolerated -DVT prophylaxis: Lovenox, SCDs in bed, ADELAIDE hose knee-high bilaterally -Chronic medical conditions per medical team -Hemoglobin 11.5, continue to monitor -Disposition: Plan to continue to monitor patient for postoperative complications, progression with PT/OT, return to p.o. diet, pain control, chronic and acute medical concerns, once patient is stable and able will be discharged to a intermediate facility for continued treatment due to patient living alone without significant help will continue to monitor progression towards this plan daily - Problems/Diagnosis (1) Fracture of femoral neck, left Problem: Acute
[2019-06-09] MEDS: ENOXAPARIN SODIUM 40 MG/0.4 ML SYRG SC SCH (16:42)
[2019-06-09] MEDS: SENNOSIDES/DOCUSATE SODIUM 1 TAB TABLET PO SCH (20:26)
[2019-06-09] MEDS: ROSUVASTATIN CALCIUM 10 MG TABLET PO SCH (20:26)
[2019-06-10] MEDS: oxyCODONE HCL/ACETAMINOPHEN 1 TAB TABLET PO PRN ×4 (05:37→23:35)
[2019-06-10 05:40] LABS: Hematocrit 33.7 % (37.0-47.0); Hemoglobin 11.3 gm/dL (12.5-16.0); Mean Cell Volume 96.3 fl (78-100); Mean Corpuscular Hemoglobin 32.3 pg (27-31); Mean Corpuscular Hgb Conc 33.5 g/dl (32-36); Platelet Count 138 K/mm3 (150-450); Red Cell Distribution Width 13.9 % (11.5-14.0); White Blood Count 7.1 K/mm3 (4.0-10.5)
[2019-06-10 06:08] LABS: BUN/Creatinine Ratio 21.3 (9.0-21.6); Calcium * 8.3 mg/dL (7.9-10.9); Carbon Dioxide 26.7 mmol/L (24-32.6); Estimated Creat Clear 47.6; Potassium 3.7 mmol/L (3.4-4.6)
[2019-06-10] MEDS: THIAMINE HCL 100 MG TABLET PO SCH (08:35)
[2019-06-10] MEDS: SERTRALINE HCL 50 MG TABLET PO SCH (08:35)
[2019-06-10] MEDS: MULTIVITAMIN/IRON/FOLIC ACID 1 TAB TABLET PO SCH (08:35)
[2019-06-10] MEDS: NICOTINE 14 MG PATC TD SCH (08:35)
[2019-06-10] MEDS: amLODIPine BESYLATE 5 MG TABLET PO SCH (08:36)
[2019-06-10] MEDS: DOCUSATE SODIUM 100 MG CAPSULE PO SCH (08:36)
[2019-06-10] MEDS: LORazepam 1 MG TABLET PO SCH ×2 (08:37→20:17)
--- NOTE | 2019-06-10 08:40 | PN ---
Subjective - Date and Time Seen Date: 06/10/19 Time: :25 Subjective Narrative: Patient reports no acute events overnight. She notes she has been up with physical therapy and walked around her room. Patient is sitting upright in bed in no acute distress. She notes her pain has not significantly improved, but is significantly worse. Patient notes her pain is mildly worse with weightbearing better with rest. Objective - Vitals Vitals: Last Vital Signs Temp 36.6 C 06/10/19 07:15 Pulse 74 06/10/19 08:36 Resp 20 06/10/19 07:15 BP 133/77 06/10/19 08:36 Pulse Ox 97 06/10/19 07:15 - Abnormal Lab Findings Abnormal Lab Findings: Abnormal Lab Results 06/10/19 Range/Units 05:14 RBC 3.50 L (4.2-5.4) M/mm3 Hgb 11.3 L (12.5-16.0) gm/dL Hct 33.7 L (37.0-47.0) % MCH 32.3 H (27-31) pg Plt Count 138 L (150-450) K/mm3 - Exam Constitutional: Present: Alert, Cooperative Respiratory: Present: no respiratory distress Extremity: Present: other - LLE--> sensation intact light touch, dorsal pedis 2+, bandages clean, dry, intact, no significant drainage, 5/5 knee flexion extension, mild diffuse tenderness about the hip Eye contact: Present: cooperative Cauti Physician Documentation - Urinary Catheter Management Urethral (Zavala) Urethral Indwelling: Yes Date of Insertion: 06/07/19 Date of Removal: 06/09/19 Time of Removal: : Assessment/Plan Plan Narrative: -79 y/o female postop day 2 status post left hip hemiarthroplasty status post a left femoral neck fracture due to a fall -Weightbearing as tolerated, anterior precautions -P.o. diet as tolerate -P.o. pain medication PRN -PT/OT progress as tolerated -DVT prophylaxis: Lovenox, SCDs in bed, ADELAIDE hose knee-high bilaterally -Chronic medical conditions per medical team -Hemoglobin 11.3, stable -Disposition: Plan to continue to monitor patient for postoperative complications, progression with PT/OT, return to p.o. diet, pain control, chronic and acute medical concerns, once stable and all these goals are met patient will be discharged to a nursing home facility plan on 06/11/2019 if no other significant complications arise, case management working on placement - Problems/Diagnosis (1) Fracture of femoral neck, left Problem: Acute
--- NOTE | 2019-06-10 10:28 | PN ---
Subjective - Date and Time Seen Date: 06/10/19 Time: 10:15 Subjective Narrative: "My pain is controlled but I haven't pooped since I've been here" Objective Objective Narrative: 79-year-old female status post left hemiarthroplasty to repair left femoral neck fracture day #2 was evaluated at bedside and was found to be afebrile and no acute distress. Patient is progressing as expected after undergoing her surgical procedure to repair her left femoral fracture, she is undergoing inpatient physical therapy as well as occupational therapy. Discharge planning to a rehab facility is underway by continuous pillowcase cutter team, acceptance and authorization is pending. In the meantime we will continue to monitor patient closely and follow-up labs have been ordered for tomorrow morning to reevaluate her condition. - Review of Systems Generalized/Overall Review: Reports: No Symptoms Reported EENTM: Reports: No Symptoms Reported Respiratory: Reports: No Symptoms Reported Cardiac: Reports: No Symptoms Reported Abdominal: Reports: No Symptoms Reported Genitourinary Symptoms: Reports: No Symptoms Reported Musculoskeletal Complaints: Reports: Joint Pain - Left hip pain Neurological: Reports: No Symptoms Reported Skin: Reports: No Symptoms Reported Endocrine: Reports: No Symptoms Reported - Vitals Vitals: Last Vital Signs Temp 36.6 C 06/10/19 07:15 Pulse 74 06/10/19 08:36 Resp 20 06/10/19 07:15 BP 133/77 06/10/19 08:36 Pulse Ox 97 06/10/19 07:15 - Abnormal Lab Findings Abnormal Lab Findings: Abnormal Lab Results 06/10/19 Range/Units 05:14 RBC 3.50 L (4.2-5.4) M/mm3 Hgb 11.3 L (12.5-16.0) gm/dL Hct 33.7 L (37.0-47.0) % MCH 32.3 H (27-31) pg Plt Count 138 L (150-450) K/mm3 - Exam Constitutional: Present: Alert, Oriented x3, Cooperative, Well developed, Well nourished, No distress, Elderly ENT Exam: Present: normal ENT inspection, hearing grossly normal, pharynx normal, TMs normal Neck: Present: non-tender, full range of motion, supple, normal inspection, trachea midline Breasts: Present: Exam deferred Respiratory: Present: chest non-tender, lungs clear, normal breath sounds, no respiratory distress, no accessory muscle use Cardiovascular/Chest: Present: normal peripheral pulses, regular rate, rhythm, no chest tenderness, no edema, no gallop, no JVD, no murmur, no rub Abdomen: Present: Normal bowel sounds, soft, nontender, nondistended, no rebound tenderness, no hepatospenomegaly, no masses /Rectal: Present: Exam deferred Extremity: Present: no pedal edema, no calf tenderness, normal capillary refill, leg pain, other - Left hip covered by dry and clean dressing, with no surrounding signs of bleeding or infection. Skin Exam: Present: normal color, warm/dry, no cyanosis Lymphatic: Present: no adenopathy Neurologic: Present: student II-XII nml as tested, normal cerebellar test, no motor/sensory deficits, alert, normal mood/affect, oriented x 3 Appearance: Present: appropriate appearance, appropriate insight, neat, no memory impairment Eye contact: Present: cooperative, good eye contact, normal speech Thoughts: Present: normal thought pattern, no apparent hallucination Cauti Physician Documentation - Urinary Catheter Management Urethral (Zavala) Urethral Indwelling: Yes Date of Insertion: 06/07/19 Date of Removal: 06/09/19 Time of Removal: 07:25 Assessment/Plan Plan Narrative: We will continue to monitor patient closely, she will continue receiving inpatient PT and OT and will follow up with discharge planning to a rehab facility. - Problems/Diagnosis (1) Rhabdomyolysis Problem: Acute Qualifiers: Rhabdomyolysis type: traumatic Encounter type: initial encounter Qualified Code(s): T79.6XXA - Traumatic ischemia of muscle, initial encounter (2) Moderate dehydration Problem: Resolved (3) JOSE L (acute kidney injury) Problem: Acute (4) Alcohol withdrawal Problem: Acute (5) Alcoholism /alcohol abuse Problem: Chronic (6) Current every day smoker Problem: Chronic (7) Nicotine dependence Problem: Chronic (8) Fracture of femoral neck, left Problem: Acute (9) History of hemiarthroplasty of left hip Problem: Acute
[2019-06-10] MEDS: POLYETHYLENE GLYCOL 3350 17 GM PACKET PO SCH (10:55)
[2019-06-10] MEDS: ENOXAPARIN SODIUM 40 MG/0.4 ML SYRG SC SCH (16:29)
[2019-06-10] MEDS: ROSUVASTATIN CALCIUM 10 MG TABLET PO SCH (20:13)
[2019-06-10] MEDS: SENNOSIDES/DOCUSATE SODIUM 1 TAB TABLET PO SCH (20:13)
[2019-06-11] MEDS: oxyCODONE HCL/ACETAMINOPHEN 1 TAB TABLET PO PRN (05:26)
--- NOTE | 2019-06-11 07:02 | DS ---
(1) Rhabdomyolysis Problem: Acute Qualifiers: Rhabdomyolysis type: traumatic Encounter type: initial encounter Qualified Code(s): T79.6XXA - Traumatic ischemia of muscle, initial encounter (2) Moderate dehydration Problem: Resolved (3) JOSE L (acute kidney injury) Problem: Resolved (4) Alcohol withdrawal Problem: Acute (5) Alcoholism /alcohol abuse Problem: Chronic (6) Current every day smoker Problem: Chronic (7) Nicotine dependence Problem: Chronic (8) Fracture of femoral neck, left Problem: Acute (9) History of hemiarthroplasty of left hip Problem: Acute Description of Stay: 79-year-old female admitted for a left femoral neck fracture after a fall that occurred in the home was evaluated at bedside and was found to be afebrile and in no acute distress. Patient underwent a left hemiarthroplasty by the orthopedic surgeon Dr. Machuca without any major issues, no adverse events w ere reported. While in our facility patient underwent inpatient PT and OT to initiate her rehab. She has progressed as expected and will be discharged to [facility] facility where she will continue with her PT and OT per her orthopedic surgeons orders. Patient will also be discharged with additional days of anticoagulation and a prescription for pain meds to manage her pain. She was given instructions to follow-up with her PCP in 1 to 2 weeks. Procedures Performed: see notes below List Procedures: Left hemiarthroplasty of femur Results and Findings: Lab Pending Results 06/08/19 08:20: WBC 8.4, RBC 3.94 L, Hgb 12.6, Hct 37.4, MCV 94.9, MCH 32.0 H, MCHC 33.7, RDW 14.0, Plt Count 129 L, Neutrophils % (Manual) 81 H, Band Neuts % (Manual) 1, Lymphocytes % (Manual) 11 L, Monocytes % (Manual) 7, Neutrophils # (Manual) 6.8 H, Lymphocytes # (Manual) 0.9 L, Monocytes # (Manual) 0.6, Platelet Estimate Normal, RBC Morphology Normal 06/08/19 08:20: Sodium 142, Plasma Sodium 142, Potassium 3.5, Chloride 108 H, Carbon Dioxide 25.9, Anion Gap 11.6, BUN 22, Creatinine 0.72, Est GFR (Non-Af Amer) 83, BUN/Creatinine Ratio 30.6 H, Random Glucose 116 H, Calcium 7.9, Calcium Adj for Albumin 8.6, Total Bilirubin 0.7, AST 70 H, ALT 47, Alkaline Phosphatase 54, Creatine Kinase 1201 H, Total Protein 5.7 L, Albumin 2.7 L 06/08/19 08:20: PT 9.8, INR (Anticoag Therapy) 0.99 06/08/19 08:20: Urine Color Yellow, Urine Appearance Clear, Urine pH 6.0, Ur Specific [place] 1.020, Urine Protein 30 H, Urine Glucose (UA) Negative, Urine Ketones 5, Urine Blood 50 H, Urine Nitrate Negative, Urine Bilirubin Negative, Prot Sulfosalicylic Acd 1+, Urine Urobilinogen Normal, Ur Leukocyte Esterase Negative, Urine RBC 10-25 H, Urine WBC 5-10 H, Ur Epithelial Cells None seen, Urine Bacteria Trace 06/09/19 05:30: Sodium 141, Plasma Sodium 141, Potassium 3.4, Chloride 107 H, Carbon Dioxide 25.6, Anion Gap 11.8, BUN 11, Creatinine 0.70, Est GFR (Non-Af Amer) 86, BUN/Creatinine Ratio 15.7, Random Glucose 103, Calcium 8.0, Creatine Kinase 1124 H 06/09/19 05:30: WBC 6.7 D, RBC 3.53 L, Hgb 11.5 L, Hct 34.1 L, MCV 96.6, MCH 32.6 H, MCHC 33.7, RDW 13.9, Plt Count 125 L, MPV 9.9 06/10/19 05:14: WBC 7.1, RBC 3.50 L, Hgb 11.3 L, Hct 33.7 L, MCV 96.3, MCH 32.3 H, MCHC 33.5, RDW 13.9, Plt Count 138 L, MPV 10.0 06/10/19 05:14: Sodium 138, Plasma Sodium 138, Potassium 3.7, Chloride 105, Carbon Dioxide 26.7, Anion Gap 10.0, BUN 19 D, Creatinine 0.89, Est GFR (Non-Af Amer) 65 D, BUN/Creatinine Ratio 21.3, Random Glucose 110, Calcium 8.3 06/11/19 05:42: Creatine Kinase 396 H Discharge Location: [facility] Disposition: SNF Condition: Good Face to Face Encounter completed per CMS Guidelines: No Level of Care: SNF Discharge Activity: Other - Weightbearing as tolerated anterior precautions Discharge Diet: General/regular food Penitentiary Therapy: Physicial Therapy, Occupation Therapy Referrals: Saad Leonard DO [Primary Care Provider] - Additional Patient Instructions (free text): Patient is weightbearing as tolerated with anterior hip precautions. [place] hose knee-high bilaterally Dressing changes to hip incision every 2-3 days and PRN if soiled. Cover with dry gauze and tape. Set up appointment to establish with Dr Martinez after discharge from the longterm. Prescriptions (Any new or edited meds): oxyCODONE HCL/ACETAMINOPHEN [Percocet 5 MG/325 MG] 1 tab PO Q6H PRN #30 tab PRN Reason: Pain Complete Home Medications List: Complete Home Medication List: Acetaminophen [Tylenol] 650 mg PO Q4H PRN 06/08/19 LORazepam [Ativan] 1 mg PO BID 06/08/19 Meloxicam [Mobic] 15 mg PO DAILY 06/08/19 Rosuvastatin Calcium [Crestor] 10 mg PO DAILY 06/08/19 Sertraline HCl [Zoloft] 50 mg PO DAILY 06/08/19 Aspirin 325 mg PO DAILY 42 Days #42 tab 06/11/19 Enoxaparin Sodium [Lovenox] 40 mg SQ DAILY 8 Days #8 ml 06/11/19 oxyCODONE HCL/ACETAMINOPHEN [Percocet 5 MG/325 MG] 1 tab PO Q6H PRN #30 tab 06/11/19
[2019-06-11] MEDS: amLODIPine BESYLATE 5 MG TABLET PO SCH (08:55)
[2019-06-11] MEDS: SERTRALINE HCL 50 MG TABLET PO SCH (08:55)
[2019-06-11] MEDS: THIAMINE HCL 100 MG TABLET PO SCH (08:55)
[2019-06-11] MEDS: NICOTINE 14 MG PATC TD SCH ×2 (08:55→09:05)
[2019-06-11] MEDS: LORazepam 1 MG TABLET PO SCH (08:55)
[2019-06-11] MEDS: MULTIVITAMIN/IRON/FOLIC ACID 1 TAB TABLET PO SCH (08:56)
[2019-06-11] MEDS: DOCUSATE SODIUM 100 MG CAPSULE PO SCH (08:56)
[2019-06-11] MEDS: POLYETHYLENE GLYCOL 3350 17 GM PACKET PO SCH (08:57)
--- NOTE | 2019-06-11 10:26 | PN ---
[facility] Note - Interim Date: 06/11/19 Time: 07:40 Narrative: 06/11/19 10:23 Patient reports no acute events overnight. Patient is sitting up comfortably in the chair upon presentation. Patient notes she feels though she is ambulate and better around the room with PT's assistance. States her daughter is coming to pick her up and take her to the care center today. She notes that her pain is better with rest and mildly increases with activity. Exam today reveals left lower extremity postoperative bandages clean/dry/intact, sensation intact light touch, distal capillary refill brisk, 5/5 knee flexion extension, mild diffuse tenderness about left hip. Discussed with patient follow-up in orthopedic outpatient clinic at 2 weeks postoperatively. Patient will continue with pain medication PRN. Patient can continue with dressing changes every 2 to 3 days or if significant drainage is seen on bandage PRN. Patient is weightbearing as tolerated with anterior precautions. Patient can continue p.o. diet PRN. Patient or group home facility staff can call orthopedic outpatient clinic with any acute questions. DVT prophylaxis continue Lovenox until 10 days postoperatively followed by 325 mg aspirin daily for 4 to 6 weeks. Continue chronic conditions per medicine.
[2019-06-11 10:39] VITALS: BP 120/74
== END 2019-06-11 10:20 | DRG 470 ==
LOC: ER 00:12 → MS 02:43
PROVIDERS: ADMIT Family Medicine; ATTEND Family Medicine
DX: F17.210 Nicotine dependence, cigarettes, uncomplicated; S72.002A Fracture of unspecified part of neck of left femur, initial encounter for closed fracture; F10.239 Alcohol dependence with withdrawal, unspecified; M62.82 Rhabdomyolysis; W01.0XXA Fall on same level from slipping, tripping and stumbling without subsequent striking against object, initial encounter; F10.20 Alcohol dependence, uncomplicated; E86.0 Dehydration; N17.9 Acute kidney failure, unspecified
CPT/HCPCS: 36415; 71010; 71045; 73502; 80048; 80053; 81001; 82550; 85007; 85025; 85027; 85610; 88307; 88311; 93005; 96360; 97116; 97161; 97165; 97530; 97535; 99285